=== PATIENT | female | born 1960 | race American Indian/Alaskan Native ===

== ENCOUNTER 2017-05-19 09:55 | Emergency (ER) | payer OTHER ==
--- NOTE | 2017-05-19 11:43 | XRay Report ---
ROUTINE CHEST, TWO VIEWS: HISTORY: Shortness of breath. The trachea, heart, mediastinal contour, lung sinclair and bony thorax are unremarkable. IMPRESSION: Unremarkable chest x-ray.
[2017-05-19 11:47] LABS: Eosinophils % (Auto) 4.7 % (0.0-4.3); Hematocrit 35.2 % (30.3-42.9); Hemoglobin 12.1 gm/dl (10.1-14.3); Mean Corpuscular HGB Conc 34 % (30-34); Mean Corpuscular Hemoglobin 31 pg (28-32); Mean Corpuscular Volume 91 fl (79-97); Platelet Count 318 K/mm3 (140-440); Red Blood Count 3.86 M/mm3 (3.65-5.03); Red Cell Distribution Width 13.6 % (13.2-15.2); White Blood Count 4.5 K/mm3 (4.5-11.0)
[2017-05-19 12:02] LABS: Anion Gap 17 mmol/L; BUN/Creatinine Ratio 23; Blood Urea Nitrogen 16 mg/dL (7-17); Calcium 9.8 mg/dL (8.4-10.2); Carbon Dioxide 29 mmol/L (22-30); Chloride 99.7 mmol/L (98-107); Glucose 89 mg/dL (65-100); Potassium 4.2 mmol/L (3.6-5.0); Sodium 141 mmol/L (137-145)
[2017-05-19 15:46] VITALS: BP 114/82
== END 2017-05-19 12:00 | disposition left against medical advice (07) ==
LOC: ED 09:55
DX: R06.09 Other forms of dyspnea (principal); Z53.21 Procedure and treatment not carried out due to patient leaving prior to being seen by health care provider
CPT/HCPCS: 36415; 71020; 80048; 84484; 85025; 93005; 93010